=== PATIENT | female | born 1970 | race Caucasian/White ===

== ENCOUNTER → 2018-12-17 | Outpatient (CLI) | payer OTHER | END | disposition home or self-care (01) | LOC: CVU 07:33 | PROVIDERS: ATTEND Nurse Practitioner Primary Care | DX: R00.2 Palpitations (principal); R07.89 Other chest pain; Q21.1 Atrial septal defect; E03.9 Hypothyroidism, unspecified; F17.210 Nicotine dependence, cigarettes, uncomplicated | CPT/HCPCS: 93017; 93306 ==